=== PATIENT | female | born 1985 | race Caucasian/White ===

== ENCOUNTER → 2022-06-10 | Emergency (ER) | payer OTHER ==
[2022-06-10 13:48] VITALS: BP 121/76
[2022-06-10 13:55] LABS: URINE BILIRUBIN - DIPSTICK NEGATIVE (NEGATIVE); URINE BLOOD DIPSTICK NEGATIVE (NEGATIVE); URINE COLOR YELLOW; URINE GLUCOSE - DIPSTICK NEGATIVE (NEGATIVE); URINE KETONE NEGATIVE (NEGATIVE); URINE LEUK ESTERASE NEGATIVE (NEGATIVE); URINE PH 6.5 (4.5-8.0); URINE PROTEIN - DIPSTICK NEGATIVE (NEG-TRACE); URINE UROBILINOGEN - DIPSTICK 0.2 E.U./dL (0.2)
[2022-06-10 13:56] LABS: HEMATOCRIT 35.1 % (37.0-47.0); HEMOGLOBIN 11.6 g/dl (12.0-16.0); IMMATURE GRANULOCYTES 0.2 % (0.0-5.0); MEAN CELL VOLUME 91.2 fL CALC (80.0-100.0); MEAN CORPUSCULAR HGB 30.1 pG CALC (26.0-32.0); NEUT# 3.59 thou/uL (2.00-7.15); RED BLOOD COUNT 3.85 mill/uL (4.20-5.60)
[2022-06-10 14:12] LABS: URINE NITRITE - DIPSTICK NEGATIVE (Negative)
[2022-06-10 15:34] LABS: ALKALINE PHOSPHATASE 28 u/l (38-126); ANION GAP 16 (6-22 (CALC)); BILIRUBIN, TOTAL 0.4 mg/dL (0.0-1.4); BUN 17 mg/dL (7-17); BUN/CREATININE RATIO 22 (12-20 (CALC)); CARBON DIOXIDE 19 mmol/l (22-30); CHLORIDE 106 mmol/l (95-108); CREATININE 0.8 mg/dL (0.5-1.0); GFR FOR AFR.AMER. > 60 ML/MIN (>=60 (CALC)); GFR OTHER RACES > 60 ML/MIN (>=60 (CALC)); POTASSIUM 4.4 mmol/l (3.5-5.1); SGOT/AST 16 u/l (14-36); SODIUM 137 mmol/l (137-146)
== END | disposition home or self-care (01) | DRG 948 ==
LOC: ED 13:16
PROVIDERS: Family Medicine
DX: R53.83 Other fatigue (principal); F32.A Depression, unspecified; F41.9 Anxiety disorder, unspecified; Z87.820 Personal history of traumatic brain injury

== ENCOUNTER 2022-07-16 20:36 | Emergency (ER) | payer SELFPAY ==
[2022-07-16 21:34] VITALS: BP 114/80
[2022-07-16 21:45] VITALS: BP 110/67
[2022-07-16 22:01] VITALS: BP 126/85
[2022-07-16 22:10] LABS: HEMOGLOBIN 11.1 g/dl (12.0-16.0); IMMATURE GRANULOCYTES 0.1 % (0.0-5.0); MEAN CELL VOLUME 96.4 fL CALC (80.0-100.0); MEAN CORPUSCULAR HGB 30.6 pG CALC (26.0-32.0); MEAN CORPUSCULAR HGB CONC 31.7 g/dL CAL (32.0-36.0); NEUT# 6.37 thou/uL (2.00-7.15); RED BLOOD COUNT 3.63 mill/uL (4.20-5.60); RED CELL DISTRI WIDTH 12.1 % (11.5-15.5)
[2022-07-16 22:15] VITALS: BP 120/81
[2022-07-16 22:21] LABS: ALBUMIN 4.1 g/dL (3.2-5.0); ALKALINE PHOSPHATASE 38 u/l (38-126); BUN 14 mg/dL (7-17); BUN/CREATININE RATIO 14 (12-20 (CALC)); CHLORIDE 103 mmol/l (95-108); GFR FOR AFR.AMER. > 60 ML/MIN (>=60 (CALC)); GFR OTHER RACES > 60 ML/MIN (>=60 (CALC)); POTASSIUM 4.1 mmol/l (3.5-5.1); SGOT/AST 23 u/l (14-36); SODIUM 138 mmol/l (137-146); TOTAL PROTEIN 6.8 g/dL (6.3-8.2)
[2022-07-16 22:22] LABS: ANION GAP 12 (6-22 (CALC)); BILIRUBIN, TOTAL 0.2 mg/dL (0.0-1.4); CARBON DIOXIDE 27 mmol/l (22-30)
[2022-07-16 22:30] VITALS: BP 117/80
[2022-07-16 22:45] VITALS: BP 120/84
[2022-07-17 00:29] LABS: URINE BILIRUBIN - DIPSTICK NEGATIVE (NEGATIVE); URINE BLOOD DIPSTICK TRACE-INTACT (NEGATIVE); URINE COLOR YELLOW; URINE GLUCOSE - DIPSTICK NEGATIVE (NEGATIVE); URINE KETONE TRACE mg/dL (NEGATIVE); URINE LEUK ESTERASE TRACE (NEGATIVE); URINE PH 7.5 (4.5-8.0); URINE SPECIFIC GRAVITY 1.015; URINE UROBILINOGEN - DIPSTICK 0.2 E.U./dL (0.2)
[2022-07-17 00:30] LABS: URINE NITRITE - DIPSTICK POSITIVE (Negative); URINE PROTEIN - DIPSTICK NEGATIVE (NEG-TRACE)
[2022-07-17 00:31] LABS: URINE BACTERIA MODERATE hpf; URINE EPITHELIAL CELLS FEW EPI/hpf (0-FEW); URINE TRIP PHOS CRYSTALS FEW lpf; URINE YEAST MODERATE hpf
[2022-07-17] MEDS ORDERED: CIPROFLOXACN500 MG PO (02:00)
[2022-07-17 02:07] VITALS: BP 120/84
== END 2022-07-17 02:20 | disposition home or self-care (01) | DRG 690 ==
LOC: ED 20:36
PROVIDERS: Emergency Medicine
DX: N39.0 Urinary tract infection, site not specified (principal); R53.1 Weakness; Z91.81 History of falling